=== PATIENT | male | born 1975 | race Hispanic/Latino ===

== ENCOUNTER 2020-05-18 22:55 | Emergency (ER) | payer BC ==
--- NOTE | 2020-05-18 23:24 | RAD ---
Exam:4 views right knee HISTORY: Pain since yesterday morning. Twisting injury. COMPARISON: None FINDINGS: No joint effusion. Preserved joint spaces. No fracture or malalignment. IMPRESSION: No radiographic abnormality. If there is concern for internal derangement, consider MRI.
== END 2020-05-18 23:40 | disposition home or self-care (01) ==
LOC: NAV ERS 22:55
DX: S83.91XA Sprain of unspecified site of right knee, initial encounter (principal); E11.40 Type 2 diabetes mellitus with diabetic neuropathy, unspecified; E78.5 Hyperlipidemia, unspecified; E03.9 Hypothyroidism, unspecified; I10 Essential (primary) hypertension; F17.220 Nicotine dependence, chewing tobacco, uncomplicated; Z79.84 Long term (current) use of oral hypoglycemic drugs; Z79.899 Other long term (current) drug therapy; X50.1XXA Overexertion from prolonged static or awkward postures, initial encounter

== ENCOUNTER 2021-02-04 13:20 | Emergency (ER) | payer BC, SELFPAY ==
[2021-02-04] MEDS ORDERED: Ketorolac Tromethamine 60 MG/2 ML VIAL ONE (14:38)
== END 2021-02-04 14:58 | disposition home or self-care (01) ==
LOC: NAV ERS 13:20
DX: S83.512A Sprain of anterior cruciate ligament of left knee, initial encounter (principal); S86.812A Strain of other muscle(s) and tendon(s) at lower leg level, left leg, initial encounter; I10 Essential (primary) hypertension; E03.9 Hypothyroidism, unspecified; E11.40 Type 2 diabetes mellitus with diabetic neuropathy, unspecified; F17.220 Nicotine dependence, chewing tobacco, uncomplicated; Z79.84 Long term (current) use of oral hypoglycemic drugs; Z79.899 Other long term (current) drug therapy; X50.1XXA Overexertion from prolonged static or awkward postures, initial encounter
CPT/HCPCS: 96372; J1885

== ENCOUNTER 2022-01-16 15:11 | Emergency (ER) | payer BC, SELFPAY ==
[2022-01-17 00:10] LABS: SARS-CoV-2 PCR by NAA Not Detected (NotDetected)
== END 2022-01-16 16:25 | disposition home or self-care (01) ==
LOC: NAV ERS 15:11
DX: J06.9 Acute upper respiratory infection, unspecified (principal); Z20.822 Contact with and (suspected) exposure to COVID-19; E11.9 Type 2 diabetes mellitus without complications; I10 Essential (primary) hypertension; E78.5 Hyperlipidemia, unspecified; E11.40 Type 2 diabetes mellitus with diabetic neuropathy, unspecified; F17.220 Nicotine dependence, chewing tobacco, uncomplicated; Z79.84 Long term (current) use of oral hypoglycemic drugs; Z79.899 Other long term (current) drug therapy
CPT/HCPCS: 99283; U0003; U0005